=== PATIENT | male | born 1955 | race Caucasian/White ===

== ENCOUNTER 2017-02-26 14:12 | Emergency (ER) | payer BC, OTHER ==
[2017-02-26 14:20] VITALS: BP 149/96
[2017-02-26] MEDS ORDERED: DIPHTH,PERTUSS(ACELL),TET VAC 0.5 ML VIAL IM ONE ×2 (14:27→14:50)
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
[2017-02-26] MEDS ORDERED: LIDOCAINE HCL/EPINEPHRINE 30 ML VIAL IJ ONE (15:07)
== END 2017-02-26 15:27 | disposition home or self-care (01) ==
LOC: ER 14:12
DX: S01.81XA Laceration without foreign body of other part of head, initial encounter (principal); F17.200 Nicotine dependence, unspecified, uncomplicated; K21.9 Gastro-esophageal reflux disease without esophagitis; Z23 Encounter for immunization